=== PATIENT | female | born 2000 | race African-American/Black ===

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

== ENCOUNTER 2019-08-18 17:18 | Emergency (ER) | payer MEDICAID ==
[2019-08-18] MEDS ORDERED: NORMAL SALINE 1000 ML 1,000 ML IV ONE (17:46)
[2019-08-18] MEDS ORDERED: DIPHENHYDRAMINE HCL 50 MG/ML VIAL IV ONE (17:46)
[2019-08-18] MEDS ORDERED: METOCLOPRAMIDE HCL INJ/PF 10 MG/2 ML SDV IV ONE (17:46)
--- NOTE | 2019-08-18 17:50 | ER Document Report ---
ED Medical Screen (RME) - General Chief Complaint: Headache Stated Complaint: DIZZY,HEADACHE,TINGLE FEELING IN ARM Time Seen by Provider: 08/18/19 17:42 Primary Care Provider: NATHALIE POP MD [Primary Care Provider] - Follow up as needed Mode of Arrival: Ambulatory Information source: Patient Notes: Patient presents complaining of right arm numbness with vision that blurred around 3 PM. Patient states symptoms lasted for about an hour and she developed right-sided headache pain. Patient states the headache pain presently is to the bilateral temporal area and behind the eyes. Patient states that she has had similar episodes like this several times over the years. Patient is currently 11 weeks . Patient states that the numbness in the blurred vision have since resolved although she still has a headache pain. Patient states her last similar episode was last week. I have greeted and performed a rapid initial assessment of this patient. A comprehensive ED assessment and evaluation of the patient, analysis of test results and completion of the medical decision making process will be conducted by additional ED providers. TRAVEL OUTSIDE OF THE [place] IN LAST 30 DAYS: No - Related Data Allergies/Adverse Reactions: No Known Allergies Allergy (Verified 08/18/19 17:38) Past Medical History Renal/ Medical History: Denies: Hx Peritoneal Dialysis Physical Exam - Vital signs Vitals: Temp Pulse Resp BP Pulse Ox 98.7 F 95 18 141/71 H 98 08/18/19 17:30 08/18/19 17:30 08/18/19 17:30 08/18/19 17:30 08/18/19 17:30 - Neurological Neuro grossly intact: Yes Cognition: Normal Rene Coma Scale Eye Opening: Spontaneous Rene Coma Scale Verbal: Oriented Rene Coma Scale Motor: Obeys Commands Rene Coma Scale Total: 15 Speech: Normal. No: Dysarthria Cranial nerves: Normal. No: Facial palsy, Tongue deviation Cerebellar coordination: Normal. No: Gait ataxia Course - Vital Signs Vital signs: Temp Pulse Resp BP Pulse Ox 98.7 F 95 18 141/71 H 98 08/18/19 17:30 08/18/19 17:30 08/18/19 17:30 08/18/19 17:30 08/18/19 17:30 Doctor's Discharge - Discharge Referrals: NATHALIE POP MD [Primary Care Provider] - Follow up as needed
[2019-08-18 18:23] LABS: ABSOLUTE EOSINOPHILS # (AUTO) 0.1 10^3/uL (0.0-0.6); ABSOLUTE LYMPHOCYTES (AUTO) 2.6 10^3/uL (0.5-4.7); ABSOLUTE MONOCYTES (AUTO) 0.6 10^3/uL (0.1-1.4); HEMOGLOBIN 15.1 g/dL (12.0-15.5); TOTAL CELLS COUNTED % (AUTO) 100 %
[2019-08-18 18:29] LABS: ABSOLUTE NEUT (AUTO) 6.6 10^3/uL (1.7-8.2); BASOPHILS % (AUTO) 0.3 % (0-2); EOSINOPHILS % (AUTO) 1.4 % (0-6); HEMATOCRIT 43.4 % (36.0-47.0); LYMPHOCYTES % (AUTO) 26.3 % (13-45); MEAN CORPUSCULAR HEMOGLOBIN 30.6 pg (27.0-33.4); MEAN CORPUSCULAR HGB CONC 34.7 g/dL (32.0-36.0); MEAN CORPUSCULAR VOLUME 88 fl (80-97); MONOCYTES % (AUTO) 5.8 % (3-13); PLATELET COUNT 310 10^3/uL (150-450); RED BLOOD COUNT 4.92 10^6/uL (3.72-5.28); RED CELL DISTRIBUTION WIDTH 12.6 % (11.5-14.0); SEGMENTED NEUTROPHILS % (AUTO) 66.2 % (42-78); WHITE BLOOD COUNT 9.9 10^3/uL (4.0-10.5)
[2019-08-18 18:32] LABS: APPEARANCE,URINE CLEAR; BILIRUBIN,URINE NEGATIVE (NEGATIVE); COLOR,URINE YELLOW; GLUCOSE, URINE NEGATIVE (NEGATIVE); KETONES,URINE 20 mg/dL (NEGATIVE); LEUKOCYTE ESTERASE,URINE NEGATIVE (NEGATIVE); NITRITE,URINE NEGATIVE (NEGATIVE); PROTEIN,URINE 30 mg/dL (NEGATIVE); URINE SPECIFIC GRAVITY 1.024
[2019-08-18 18:44] LABS: ALBUMIN 4.5 g/dL (3.5-5.0); ALKALINE PHOSPHATASE 46 U/L (38-126); ANION GAP 10 (5-19); ASPARTATE AMINO TRANSFERASE 21 U/L (14-36); BILIRUBIN,DIRECT 0.3 mg/dL (0.0-0.4); BILIRUBIN,TOTAL 0.4 mg/dL (0.2-1.3); BLOOD UREA NITROGEN 7 mg/dL (7-20); CALCIUM 9.9 mg/dL (8.4-10.2); CARBON DIOXIDE 27 mmol/L (22-30); CHLORIDE 100 mmol/L (98-107); GLUCOSE 98 mg/dL (75-110); POTASSIUM 4.2 mmol/L (3.6-5.0); TOTAL PROTEIN 7.4 g/dL (6.3-8.2)
--- NOTE | 2019-08-18 19:48 | ER Document Report ---
Entered by XI SIMS SCRIBE 08/18/191919 Acting as scribe for:KRISTI MARTINEZ MD ED General - General Chief Complaint: Headache Stated Complaint: DIZZY,HEADACHE,TINGLE FEELING IN ARM Time Seen by Provider: 08/18/19 17:42 Primary Care Provider: NATHALIE POP MD [Primary Care Provider] - Follow up as needed Mode of Arrival: Ambulatory Information source: Patient Notes: This 19 year old female patient presents to the ED today with complaints of right arm and hand numbness, blurry vision, and tongue swelling that developed into a throbbing headache that started at 3:00 PM today. Patient states that she feels the pain in her temporal region bilaterally and behind her eyes. Patient reports light sensitivity. Patient states that she has experienced these symptoms before approximately x5 times in the last year, with the most recent episode being x4 days ago. Patient notes that she usually sleeps off the headache which is normally resolved when she wakes up and that pain medications provide no relief. Patient notes that she did not seek treatment before today. Patient states that she is 11 weeks . TRAVEL OUTSIDE OF THE [place] IN LAST 30 DAYS: No - Related Data Allergies/Adverse Reactions: No Known Allergies Allergy (Verified 08/18/19 17:38) Past Medical History - General Information source: Patient - Social History Smoking Status: Never Smoker Cigarette use (# per day): No Chew tobacco use (# tins/day): No Smoking Education Provided: No Frequency of alcohol use: None Drug Abuse: None Occupation: [employer] Teacher Family History: Reviewed & Not Pertinent Patient has suicidal ideation: No Patient has homicidal ideation: No Past Surgical History: Reports: Hx Tonsillectomy Review of Systems - Review of Systems Constitutional: No symptoms reported EENT: See HPI, Blurred vision, Other - Light sensitivity and tongue swelling Cardiovascular: No symptoms reported Respiratory: No symptoms reported Gastrointestinal: No symptoms reported Genitourinary: No symptoms reported Female Genitourinary: See HPI, - 11 weeks Musculoskeletal: See HPI, Other - Right arm and hand numbness Skin: No symptoms reported Hematologic/Lymphatic: No symptoms reported Neurological/Psychological: See HPI, Headaches -: Yes All other systems reviewed and negative Physical Exam - Vital signs Vitals: Temp Pulse Resp BP Pulse Ox 98.7 F 95 18 141/71 H 98 08/18/19 17:30 01/19/20 17:30 08/18/19 17:30 08/18/19 17:30 08/18/19 17:30 Interpretation: Normal - General General appearance: Alert - HEENT Head: Atraumatic, Other - Bitemporal and scapular musculature tenderness with palpation Eyes: Normal Pupils: PERRL Neck: Other - Posterior cervical musculature tenderness with palpation - Respiratory Respiratory status: No respiratory distress Chest status: Nontender Breath sounds: Normal Chest palpation: Normal - Cardiovascular Rhythm: Regular Heart sounds: Normal auscultation Murmur: No - Abdominal Inspection: Normal Distension: No distension Bowel sounds: Normal Tenderness: Nontender Organomegaly: No organomegaly - Back Back: Normal, Nontender - Extremities General upper extremity: Normal inspection General lower extremity: Normal inspection - Neurological Neuro grossly intact: Yes - No neurological deficits at this time. - Psychological Associated symptoms: Normal affect, Normal mood - Skin Skin Temperature: Warm Skin Moisture: Dry Skin Color: Normal Course - Vital Signs Vital signs: Temp Pulse Resp BP Pulse Ox 98.7 F 95 18 141/71 H 98 08/18/19 17:30 08/18/19 17:30 08/18/19 17:30 08/18/19 17:30 08/18/19 17:30 - Laboratory Result Diagrams: 08/18/19 18:00 08/18/19 18:00 Laboratory results interpreted by me: 08/18/19 08/18/19 18:00 18:00 Sodium 136.5 L Creatinine 0.49 L Urine Protein 30 H Urine Ketones 20 H Urine Urobilinogen 2.0 H Discharge - Discharge Clinical Impression: Migraine headache with aura Qualifiers: Status migrainosus presence: without status migrainosus Intractability: not intractable Qualified Code(s): G43.109 - Migraine with aura, not intractable, without status migrainosus Condition: Stable Disposition: HOME, SELF-CARE Additional Instructions: Migraine Headache The physician feels that your symptoms are due to a migraine attack. Migraines are caused by changes in the blood vessels of the head. Arteries go into spasm, often causing warning symptoms that a headache may begin soon. As the spasm goes away, the vessels dilate and throb, causing the pounding pain of a migraine headache. Migraines often cause nausea and vomiting. The treatment of headaches varies with severity and cause of pain. Not all headaches need pain shots -- in fact, there is evidence that using narcotics for headaches may make them worse in the long run. The physician will determine the therapy that's in your best interest for this particular headache. Medications are available that may prevent migraines, or stop them as they first occur. If one medication is not helpful, try another. If migraines are frequent, be patient -- follow the doctor's recommendations. Call the physician if you are worsening, or if new symptoms arise. Your symptoms sound most likely due to migraine headache with aura. The aura are the neurological symptoms you feel just prior to onset of headache. You were given fluids, Benadryl, and Reglan today for your headache. Reglan is often used for nausea in . You will receive a prescription for Reglan to take along with Benadryl the next time you have 1 of these headaches, it will possibly help it go away much quicker. Follow-up with a local medical doctor or your [employer] doctor as needed. RETURN TO THE EMERGENCY ROOM IF ANY NEW OR WORSENING SYMPTOMS. Prescriptions: Metoclopramide HCl [Reglan 10 mg Tablet] 1 tab PO ASDIR PRN #20 tablet PRN Reason: Referrals: NATHALIE POP MD [Primary Care Provider] - Follow up as needed Scribe Attestation: 08/18/19 20:11 I personally performed the services described in the documentation, reviewed and edited the documentation which was dictated to the scribe in my presence, and it accurately records my words and actions. I personally performed the services described in the documentation, reviewed and edited the documentation which was dictated to the scribe in my presence, and it accurately records my words and actions.
[2019-08-18] MEDS ORDERED: DIPHENHYDRAMINE HCL 50 MG/ML VIAL ONE (20:17)
[2019-08-18] MEDS ORDERED: METOCLOPRAMIDE HCL INJ/PF 10 MG/2 ML SDV ONE (20:18)
[2019-08-18 21:20] VITALS: BP 129/70
== END 2019-08-18 21:23 | disposition home or self-care (01) ==
LOC: ER 17:18
DX: O99.351 Diseases of the nervous system complicating pregnancy, first trimester (principal); G43.109 Migraine with aura, not intractable, without status migrainosus; O26.891 Other specified pregnancy related conditions, first trimester; R20.0 Anesthesia of skin; H53.8 Other visual disturbances; R22.0 Localized swelling, mass and lump, head; H53.149 Visual discomfort, unspecified; Z3A.11 11 weeks gestation of pregnancy
CPT/HCPCS: 99284; 96361; 96374; 96375; 36415; 85025; 80053; 81001; J1200; J2765; J7030

== ENCOUNTER 2020-03-05 08:06 | Inpatient (IN) | payer MEDICAID ==
[2020-03-05] MEDS ORDERED: OXYTOCIN/0.9 % SODIUM CHLORIDE 30 UNIT/500 ML RTUINJ ONE ×2 (09:34→10:46)
[2020-03-05] MEDS ORDERED: MISOPROSTOL 0.2 MG TABLET ONE (09:34)
[2020-03-05] MEDS ORDERED: LIDOCAINE 1% INJ-PF (10 MG/ML) 30 ML SDV ONE (09:34)
[2020-03-05] MEDS ORDERED: OXYTOCIN 10 UNIT/ML VIAL ONE (09:34)
--- NOTE | 2020-03-05 10:01 | Admission Physical ---
Datetime Report Generated by CPN: 03/05/2020 10:01 CURRENT ADMISSION Chief Complaint: Uterine Contractions Indication for Induction: Not Applicable Admit Impression : Term, Intrauterine Admit Plan: Admit to Unit; Initiate Labor Protocol ALLERGIES Medication Allergies: No Medication Allergies: No Known Allergies (08/18/2019) Latex: No Latex Allergies OBSTETRICAL HISTORY EDC: 03/12/2020 00:00 : 2 Para: 1 Term: 1 : 0 SAB: 0 IAB: 0 Ectopic: 0 Livin Cesareans: 0 VBACs: 0 Multiple Births: 0 Obstetrical History Comments: [id number], 37 wks viable baby boy G2- Current SEE RECORDS Alcohol: No Marijuana : No Cocaine: No Other Illicit Drugs: No Cigarettes: Never Smoker. [id number] PHYSICAL EXAM General: Normal HEENT: Normal Neurologic: Normal Thyroid: Normal Heart: Normal Lungs: Normal Breast: Deferred Back: Normal Abdomen: Normal Genitourinary Exam: Normal Extremities: Normal DTRs: Normal Pelvic Type: Adequate FETUS A EGA: 39.0 INFORMED CONSENT Signature: with User ID: [email or web address]
[2020-03-05] MEDS ORDERED: MAGNESIUM HYDROXIDE SUSP 30 ML UDCUP PO PRN (10:05)
[2020-03-05] MEDS ORDERED: ACETAMINOPHEN WITH CODEINE #3 TABLET PO PRN (10:05)
[2020-03-05] MEDS ORDERED: ZOLPIDEM TARTRATE 5 MG TABLET PO PRN (10:05)
[2020-03-05] MEDS ORDERED: MEASLES,MUMPS&RUBELLA VACC/PF 0.5 ML VIAL SUBCUT PRN (10:05)
[2020-03-05] MEDS ORDERED: PROMETHAZINE HCL 25 MG TABLET PO PRN (10:05)
[2020-03-05] MEDS ORDERED: OXYTOCIN/0.9 % SODIUM CHLORIDE 30 UNIT/500 ML RTUINJ IV PRN (10:05)
[2020-03-05] MEDS ORDERED: PROMETHAZINE HCL INJ 25 MG/1 ML VIAL IV PRN (10:05)
[2020-03-05] MEDS ORDERED: NA PHOS,M-B/NA PHOS,DI-BA (ADULT) 133 ML ENEMA PR PRN (10:05)
[2020-03-05] MEDS ORDERED: BENZOCAINE/MENTHOL AEROSOL SPRAY 56 ML TOP PRN (10:05)
[2020-03-05] MEDS ORDERED: PSEUDOEPHEDRINE HCL 30 MG TABLET PO PRN (10:05)
[2020-03-05] MEDS ORDERED: DIBUCAINE 1% OINTMENT 28 GM TP PRN (10:05)
[2020-03-05] MEDS ORDERED: DIPHENHYDRAMINE HCL 25 MG CAPSULE PO PRN (10:05)
[2020-03-05] MEDS ORDERED: GLYCERIN/WITCH HAZEL LEAF 1 EACH MED..WIPE TP PRN (10:05)
[2020-03-05] MEDS ORDERED: ACETAMINOPHEN 650 MG SUPP.RECT PR PRN (10:05)
[2020-03-05] MEDS ORDERED: DIPH/PERTUSS(ACELL)/TETANUS VAC/PF 0.5 ML SYR (>=10YO) IM PRN (10:05)
[2020-03-05] MEDS ORDERED: PROMETHAZINE HCL 25 MG SUPP.RECT PR PRN (10:05)
[2020-03-05 10:11] LABS: APPEARANCE,URINE CLOUDY; BILIRUBIN,URINE NEGATIVE (NEGATIVE); COLOR,URINE YELLOW; GLUCOSE, URINE NEGATIVE (NEGATIVE); KETONES,URINE NEGATIVE (NEGATIVE); LEUKOCYTE ESTERASE,URINE LARGE (NEGATIVE); NITRITE,URINE NEGATIVE (NEGATIVE); PROTEIN,URINE NEGATIVE (NEGATIVE); URINE SPECIFIC GRAVITY 1.014; UROBILINOGEN,URINE NEGATIVE mg/dL (<2.0)
[2020-03-05] MEDS ORDERED: RINGERS SOLUTION,LACTATED 1,000 ML IV PRN (10:11)
[2020-03-05 10:38] LABS: URINE AMPHETAMINES SCREEN NEGATIVE; URINE BARBITURATES SCREEN NEGATIVE; URINE BENZODIAZEPINES SCREEN NEGATIVE; URINE COCAINE SCREEN NEGATIVE; URINE METHADONE SCREEN NEGATIVE; URINE PHENCYCLIDINE SCREEN NEGATIVE
[2020-03-05 10:47] LABS: URINE MARIJUANA (THC) SCREEN UNCONFIRMED POSITIVE
[2020-03-05] MEDS ORDERED: MISOPROSTOL 0.1 MG TABLET PR ONE (10:57)
[2020-03-05] MEDS ORDERED: NORMAL SALINE IV PRN ×2 (11:01)
[2020-03-05] MEDS ORDERED: OXYTOCIN IV PRN ×2 (11:01)
--- NOTE | 2020-03-05 11:07 | Delivery Summary ---
Del Sum A-C Datetime Report Generated by CPN: 03/05/2020 11:07 DELIVERY PERSONNEL DELIVERY PERSONNEL: [id number] Delivery Doctor:: Mandeep Richmond MD Labor and Delivery Nurse:: Ml Riggs RNiron worker apprentice Nurse:: Meli Kan RN Nursery Nurse:: Meli Kan RN Nursery Technician/PAN WASHER: Daysi Luis, INVESTMENT BANKER MATERNAL INFORMATION Delivery Anesthesia: None Medications After Delivery: Pitocin 30 Units in 500ml NS/D5W Delivery QBL: 50 Maternal Complications: None Provider Comments: nuchal cord tight reduced LABOR SUMMARY EDC: 03/12/2020 00:00 No. Babies in Womb: 0 Attempted: No Labor Anesthesia: None LABOR INFORMATION Reason for Induction: Not Applicable Onset of Labor: 03/05/2020 05:30 Complete Dilatation: 03/05/2020 09:44 Oxytocin: N/A Group B Beta Strep: Negative Antibiotics # of Doses: 0 Antibiotics Time of Last Dose: n/a Name of Antibiotic Given: n/a Steroids Given: None Reason Steroids Not Administered: Not Applicable MEMBRANES Membranes Rupture Method: Artificial Rupture of Membranes: 03/05/2020 09:44 Length of Rupture (hr): 0.12 Amniotic Fluid Color: Clear Amniotic Fluid Amount: Small Amniotic Fluid Odor: Normal STAGES OF LABOR Stage 1 hr: 4 Stage 1 min: 14 Stage 2 hr: 0 Stage 2 min: 7 Stage 3 hr: 0 Stage 3 min: 3 Total Time in Labor hr: 4 Total Time in Labor min: 24 VAGINAL DELIVERY Episiotomy: None Laceration #1: None Laceration Extension #1: N/A Laceration Repair: Not Applicable Sponge Count Correct: N/A Sharps Count Correct: N/A CSECTION DELIVERY Primary Indication: N/A CSection Incidence: N/A Labor: N/A Elective: N/A CSection Incision: N/A BABY A INFORMATION Delivery Date/Time: 03/05/2020 09:51 Method of Delivery: Vaginal Nurse Controlled Delivery: No Born in Route : No : N/A Forceps: N/A Vacuum Extraction: N/A Shoulder Dystocia : No PRESENTATION/POSITION BABY A Presentation: Cephalic Cephalic Presentation: Vertex Vertex Position: Left Occipital Anterior Breech Presentation: N/A PLACENTA INFORMATION BABY A Placenta Delivery Time : 03/05/2020 09:54 Placenta Method of Delivery: Spontaneous Placenta Status: Delivered SCORES BABY A Heart Rate 1 min: >100 bpm Resp Effort 1 min: Good Cry Reflex Irritability 1 min: Cough or Sneeze or Pulls Away Muscle Tone 1 min: Active Motion Color 1 min: Blue/Pale Resuscitation Effort 1 min: Tactile Stimulation SCORE 1 MIN: 8 Heart Rate 5 min: >100 bpm Resp Effort 5 min: Good Cry Reflex Irritability 5 min: Cough or Sneeze or Pulls Away Muscle Tone 5 min: Active Motion Color 5 min: Body [place], Extremities Blue Resuscitation Effort 5 min: Tactile Stimulation SCORE 5 MIN: 9 INFANT INFORMATION BABY A Gestational Age at Delivery: 39.0 Gestational Status: Full Term- 39- 40.6 Weeks Infant Outcome : Liveborn Condition : Stable Infant Sex: Female IDENTIFICATION BABY A Infant Verification Date/Time: 03/05/2020 10:09 ID Band Number: [id number] Mother's Name Verified: Yes Infant RN Verifying : JazmineIRIS pires Additional Verifying Personnel: RADHA Braxton WEIGHT/LENGTH BABY A Infant Birthweight (gm): 2981 Weight (lb): 6 Infant Weight (oz): 9 Length (in): 19.50 Infant Length (cm): 49.53 CORD INFORMATION BABY A No. Cord Vessels: 3 Nuchal Cord : Around Neck x1, Loose Cord Blood Taken: Yes-For Eval (Mom's Blood Type - or O+) Suction: None ASSESSMENT BABY A Infant Complications: None Physical Findings at Delivery: Within Normal Limits Respirations: Appears Normal Tire Wrapper/ALS Called : No Infant Care By: Jadon Kan RN Transferred To: Remains with Mother BABY B INFORMATION : N/A SIGNATURES Signature: with User ID: [email or web address]
--- NOTE | 2020-03-05 11:08 | Warning Signs in Babies ---
VOD Warning Signs Datetime Report Generated by [facility]: 03/05/2020 11:08 VOD#608 -Warning Signs in Babies: Needs to be viewed. (03/05/2020 08:18:Ml Riggs RN)
[2020-03-05] MEDS ORDERED: OXYTOCIN/NORMAL SALINE 500 ML IV PRN (11:14)
[2020-03-05 12:08] LABS: ABSOLUTE LYMPHOCYTES (AUTO) 1.4 10^3/uL (0.5-4.7); ABSOLUTE MONOCYTES (AUTO) 0.4 10^3/uL (0.1-1.4); ABSOLUTE NEUT (AUTO) 14.1 10^3/uL (1.7-8.2); BASOPHILS % (AUTO) 0.1 % (0-2); EOSINOPHILS % (AUTO) 0.2 % (0-6); HEMATOCRIT 41.6 % (36.0-47.0); LYMPHOCYTES % (AUTO) 8.9 % (13-45); MEAN CORPUSCULAR HGB CONC 33.7 g/dL (32.0-36.0); MEAN CORPUSCULAR VOLUME 89 fl (80-97); MONOCYTES % (AUTO) 2.3 % (3-13); PLATELET COUNT 224 10^3/uL (150-450); RED BLOOD COUNT 4.67 10^6/uL (3.72-5.28); RED CELL DISTRIBUTION WIDTH 12.8 % (11.5-14.0); SEGMENTED NEUTROPHILS % (AUTO) 88.5 % (42-78); TOTAL CELLS COUNTED % (AUTO) 100 %
[2020-03-05] MEDS: IBUPROFEN 800 MG TABLET PO SCH ×2 (13:06→22:41)
[2020-03-05] MEDS: DOCUSATE SODIUM 100 MG CAPSULE PO SCH (17:06)
[2020-03-05] MEDS: FERROUS SULFATE 325 MG TABLET PO SCH (17:06)
[2020-03-05] MEDS: FAMOTIDINE 20 MG TABLET PO SCH (22:41)
[2020-03-06] MEDS: IBUPROFEN 800 MG TABLET PO SCH ×3 (05:40→22:13)
[2020-03-06 07:32] LABS: HEMATOCRIT 38.2 % (36.0-47.0); MEAN CORPUSCULAR HGB CONC 34.1 g/dL (32.0-36.0); MEAN CORPUSCULAR VOLUME 88 fl (80-97); PLATELET COUNT 215 10^3/uL (150-450); RED BLOOD COUNT 4.34 10^6/uL (3.72-5.28); RED CELL DISTRIBUTION WIDTH 12.8 % (11.5-14.0); WHITE BLOOD COUNT 11.5 10^3/uL (4.0-10.5)
[2020-03-06] MEDS: DOCUSATE SODIUM 100 MG CAPSULE PO SCH ×2 (10:23→17:26)
[2020-03-06] MEDS: SENNOSIDES/DOCUSATE 8.6-50 MG 1 EACH TABLET PO SCH (10:23)
[2020-03-06] MEDS: FERROUS SULFATE 325 MG TABLET PO SCH ×2 (10:23→17:26)
[2020-03-06] MEDS: PRENATAL VITAMIN W DHA CAPSULE PO SCH (10:23)
[2020-03-06] MEDS: FAMOTIDINE 20 MG TABLET PO SCH ×2 (11:08→22:14)
--- NOTE | 2020-03-06 11:08 | PDOC PROGRESS REPORT ---
Subjective-OB Progress Note for:: 03/06/20 - PPDay #1, doing well, uob, voiding, O+, rubella immune, bottlefeeding Physical Exam (OB) Vital Signs: Temp Pulse Resp BP Pulse Ox 97.5 F 72 18 114/72 100 03/06/20 08:17 03/06/20 08:17 03/06/20 08:17 03/06/20 08:17 03/06/20 08:17 Intake & Output 03/05/20 03/06/20 03/07/20 06:59 06:59 06:59 Intake Total 500 Balance 500 Weight 71.8 kg - General General Appearance: Appears well, Alert In distress: None - PIH/Pre-Eclampsia DTR's: 2 + Clonus: Negative Headache: Absent Epigastric Pain: No Visual Changes: No - Lochia Lochia Amount: Scant < 10 ml Lochia Color: Rubra/Red - Abdomen Description: Tender Hernia Present: Yes Fundal Description: Firm, Midline Fundal Height: u/u - u/2 - Respiratory Respiratory Status: No respiratory distress - Abdominal Distension: No distension Tenderness: Nontender - Genitourinary Genitourinary Note: voiding - Extremities Upper extremity: Normal inspection Lower extremities: Normal inspection - Neurological Cognition: Normal Orientation: AAOx4 - Psychological Associated symptoms: Normal affect, Normal mood - Skin Skin Temperature: Warm Skin Moisture: Dry Objective-Diagnostic Laboratory: 03/06/20 06:50 03/05/20 03/05/20 03/06/20 11:09 11:09 06:50 WBC 16.0 H 11.5 H RBC 4.67 4.34 Hgb 14.0 13.0 Hct 41.6 38.2 MCV 89 88 MCH 30.0 30.0 MCHC 33.7 34.1 RDW 12.8 12.8 Plt Count 224 215 Seg Neutrophils % 88.5 H Blood Type O POSITIVE Antibody Screen NEGATIVE Assessment and Plan(PN) - Assessment and Plan (1) Normal course Is this a current diagnosis for this admission?: Yes (2) Acute blood loss anemia Is this a current diagnosis for this admission?: Yes (3) Pyelonephritis affecting in third trimester Is this a current diagnosis for this admission?: Yes (4) Vaginal delivery Is this a current diagnosis for this admission?: Yes Plan:: routine PP orders, ambulation encouraged - Time Spent with Patient Time with patient: Less than 15 minutes Medications reviewed and adjusted accordingly: Yes - Disposition Anticipated Discharge Disposition: Home, Self Care Anticipated Discharge Timeframe: within 24 hours
[2020-03-06 20:47] VITALS: BP 118/64
[2020-03-07] MEDS: IBUPROFEN 800 MG TABLET PO SCH (05:25)
[2020-03-07] MEDS: FERROUS SULFATE 325 MG TABLET PO SCH (10:29)
[2020-03-07] MEDS: SENNOSIDES/DOCUSATE 8.6-50 MG 1 EACH TABLET PO SCH (10:29)
[2020-03-07] MEDS: DOCUSATE SODIUM 100 MG CAPSULE PO SCH (10:29)
[2020-03-07] MEDS: PRENATAL VITAMIN W DHA CAPSULE PO SCH (10:29)
[2020-03-07] MEDS: FAMOTIDINE 20 MG TABLET PO SCH (10:29)
--- NOTE | 2020-03-07 10:39 | PDOC DISCHARGE SUMMARY ---
Impression - Admit/DC Date/PCP Admission Date/Primary Care Provider: 03/05/20 09:22 SOLIS MONSON MD Discharge Date: 03/07/20 - PP Day #2, doing well, bottlefeeding - Discharge Diagnosis (1) Normal course Is this a current diagnosis for this admission?: Yes (2) Acute blood loss anemia Is this a current diagnosis for this admission?: Yes (3) Pyelonephritis affecting in third trimester Is this a current diagnosis for this admission?: Yes (4) Vaginal delivery Is this a current diagnosis for this admission?: Yes (5) thc use in Is this a current diagnosis for this admission?: Yes - Additional Information Resuscitation Status: Full Code Discharge Diet: As Tolerated, Regular Discharge Activity: Activity As Tolerated Referrals: SOLIS MONSON MD [Primary Care Provider] - Prescriptions: Ibuprofen [Motrin 800 mg Tablet] 800 mg PO Q8 #60 tablet Home Medications: Pnv No.121/Iron/Folic Acid [ Multivitamin Tablet] 1 tab PO DAILY 04/19/17 Ibuprofen [Motrin 800 mg Tablet] 800 mg PO Q8 #60 tablet 03/07/20 HPI Reason(s) for Admission: Onset of Labor Procedures: Ultrasound Intrapartum Procedure(s): Spontaneous Vaginal Delivery Hospital Course Hospital Course: normal PP course Results Laboratory Results: WBC 11.5 10^3/uL (4.0-10.5) H 03/06/20 06:50 RBC 4.34 10^6/uL (3.72-5.28) 03/06/20 06:50 Hgb 13.0 g/dL (12.0-15.5) 03/06/20 06:50 Hct 38.2 % (36.0-47.0) 03/06/20 06:50 MCV 88 fl (80-97) 03/06/20 06:50 MCH 30.0 pg (27.0-33.4) 03/06/20 06:50 MCHC 34.1 g/dL (32.0-36.0) 03/06/20 06:50 RDW 12.8 % (11.5-14.0) 03/06/20 06:50 Plt Count 215 10^3/uL (150-450) 03/06/20 06:50 Lymph % (Auto) 8.9 % (13-45) L 03/05/20 11:09 Bartholomew % (Auto) 2.3 % (3-13) L 03/05/20 11:09 Eos % (Auto) 0.2 % (0-6) 03/05/20 11:09 Baso % (Auto) 0.1 % (0-2) 03/05/20 11:09 Absolute Neuts (auto) 14.1 10^3/uL (1.7-8.2) H 03/05/20 11:09 Absolute Lymphs (auto) 1.4 10^3/uL (0.5-4.7) 03/05/20 11:09 Absolute Monos (auto) 0.4 10^3/uL (0.1-1.4) 03/05/20 11:09 Absolute Eos (auto) 0.0 10^3/uL (0.0-0.6) 03/05/20 11:09 Absolute Basos (auto) 0.0 10^3/uL (0.0-0.2) 03/05/20 11:09 Seg Neutrophils % 88.5 % (42-78) H 03/05/20 11:09 Urine Color YELLOW 03/05/20 08:10 Urine Appearance CLOUDY 03/05/20 08:10 Urine pH 7.0 (5.0-9.0) 03/05/20 08:10 Ur Specific [place] 1.014 03/05/20 08:10 Urine Protein NEGATIVE mg/dL (NEGATIVE) 03/05/20 08:10 Urine Glucose (UA) NEGATIVE mg/dL (NEGATIVE) 03/05/20 08:10 Urine Ketones NEGATIVE mg/dL (NEGATIVE) 03/05/20 08:10 Urine Blood SMALL (NEGATIVE) H 03/05/20 08:10 Urine Nitrite NEGATIVE (NEGATIVE) 03/05/20 08:10 Urine Bilirubin NEGATIVE (NEGATIVE) 03/05/20 08:10 Urine Urobilinogen NEGATIVE mg/dL (<2.0) 03/05/20 08:10 Ur Leukocyte Esterase LARGE (NEGATIVE) H 03/05/20 08:10 Urine Ascorbic Acid NEGATIVE (NEGATIVE) 03/05/20 08:10 Urine Opiates Screen NEGATIVE 03/05/20 08:10 Urine Methadone Screen NEGATIVE 03/05/20 08:10 Ur Barbiturates Screen NEGATIVE 03/05/20 08:10 Ur Phencyclidine Scrn NEGATIVE 03/05/20 08:10 Ur Amphetamines Screen NEGATIVE 03/05/20 08:10 U Benzodiazepines Scrn NEGATIVE 03/05/20 08:10 Urine Cocaine Screen NEGATIVE 03/05/20 08:10 U Marijuana (THC) Screen UNCONFIRMED POSITIVE 03/05/20 08:10 RPR NONREACTIVE (NONREACTIVE) 03/05/20 11:09 Blood Type O POSITIVE 03/05/20 11:09 Antibody Screen NEGATIVE 03/05/20 11:09 Plan Health Concerns: Hx +THC this . pt needs to limit use of THC Plan of Treatment: d/c home, f/up with [facility] in 4 week for PP check
== END 2020-03-07 13:45 | disposition home or self-care (01) | DRG 806 ==
LOC: LC 08:06 → LR 09:22 → 2S 11:56
PROVIDERS: ADMIT Obstetrics & Gynecology Gynecology; ATTEND Obstetrics & Gynecology Gynecology
PROC: 10E0XZZ Delivery of Products of Conception, External Approach (ICD-10-PCS; principal; 2020-03-05)
DX: O69.1XX0 Labor and delivery complicated by cord around neck, with compression, not applicable or unspecified (principal); O99.324 Drug use complicating childbirth; Z37.0 Single live birth; F12.90 Cannabis use, unspecified, uncomplicated; O69.81X0 Labor and delivery complicated by cord around neck, without compression, not applicable or unspecified; Z3A.39 39 weeks gestation of pregnancy
CPT/HCPCS: 36415; 80307; 80349; 81005; 85025; 85027; 86592; 86850; 86900; 86901; G0480; J2590; J3490